=== PATIENT | male | born 1960 | race Caucasian/White ===

== ENCOUNTER 2016-10-10 02:38 | Emergency (ER) | payer OTHER ==
[~2016-10-10] VITALS: Ht 182.9 cm; Wt 95.5 kg
[2016-10-10 02:35] VITALS: BP 144/79; PULSE 76; RESP 20; O2SAT 94
--- NOTE | 2016-10-10 02:43 | ED.REPORT ---
HPI-Back Pain 40 and Over Date of Service Oct 10, 2016 ED Provider: Fidel Baron MD Patient is a 56 y/o male with a history of chronic back pain that presents to the ED via EMS with lower back pain. The pain began after the patient missed a step into his motor home [place] 2130, hyperextending his left knee and injuring his back. He did not fall and experienced no head trauma. The pain in his back radiates into his legs with associated numbness of the inner thighs and feet. The patient experiences these symptoms fairly frequently when he throws out his back. He has been unable to walk since this event but denies bowel or bladder incontinence. The patient had consumed a 6-pack of beer while celebrating his friends birthday prior to his fall, but state that he averages 1-2 beers a week. His back issues began after an injury in 2001 but he no longer uses any medication to treat the pain. Nursing Notes Stated Complaint: BACK PAIN Chief Complaint: Back Pain or Injury Nursing Notes Reviewed: Yes Allergies: Coded Allergies: Penicillins (Verified Allergy, Unknown, 10/10/16) Uncoded Allergies: PCN CAUSES SWELLING (Allergy, Unknown, 07/21/04) Penicillin (Allergy, Unknown, 07/21/04) No Active Prescriptions or Reported Meds General Time Seen by MD: 02:39 Chief Complaint Back pain Hx Obtained From: Patient, EMS Arrived By: Ambulance Sudden in Onset?: Yes Onset Occurred: 5 - 8 hours ago Symptom Duration: Since onset Quality: Painful Severity: Current: Severe Severity: Maximum: Severe Associated with: Reports: Numbness both low ext, Numbness left low ext Recent Healthcare: Recent doctor visit Similar Sx Previous: No Past Medical History Past Medical History Chronic back pain. Depression. Past Surgical History No history provided. Smoking History Current Every Day Smoker Social History Alcohol Use: 3-5 per day Other Social History: Local resident Ambulatory Status Independent Review of Systems Review of Systems Note: denies bowel or bladder incontinence Respiratory: Denies: Non-productive cough, Shortness of breath Cardiovascular: Denies: Chest pain GI: Denies: Abdominal pain, Vomiting Musculoskeletal: Reports: Back pain, Extremity pain, Denies: Neck pain Neurologic: Reports: Numbness Complete sys rev & neg: except as marked. Physical Exam Initial Vital Signs Vital Signs (First) Date Time Temp Pulse Resp B/P Pulse Ox O2 Delivery O2 Flow Rate FiO2 4/15/17 02:35 36.8 76 20 144/79 94 Room Air Initial VS: Reviewed, Vital signs normal Head / Eyes: Atraumatic, Normocephalic, PERRL ENT: Mucous membranes moist Skin: Warm, Dry, No cyanosis Psychiatric: Mood/affect normal, Behavior normal, Normal thought content General/Constitutional: Awake, Alert, Well developed, Well nourished Respiratory / Chest: Atraumatic, Breath sounds NL, Breath sounds = bilat, No respiratory distress Cardiovascular: Heart rate NL, Regular rhythm, Heart sounds NL Dorsalis pedis pulse and cap refill normal Abdomen: Atraumatic, Soft, Non-tender Back: Atraumatic Extreme low back pain and tenderness in bilateral parasacral region. Neurologic: Oriented X3, Speech NL, No motor deficits Subjective decreased sensation in LLE. Lower Extremity / Pelvis / MS: Atraumatic 4/5 strength of plantarflexion and dorsiflexion of the left leg. Patient is too uncomfortable to perform straight leg raise. Interpretation & Diagnostics Interpretation & Diagnostics: Lumbar spine X-Ray: Possible compression of L5, acuity uncertain Wet read ED physician Lab Results Interpretation Test 10/10/16 02:30 10/10/16 02:45 Hold Purple Top Tube Received (Received) Hold Blue Top Tube Received (Received) Hold Red Top Tube Received (Received) Hold [place] Top Tube Received (Received) Hold Urine Received (Received) Re-Eval/Medical Decision Med Decision/Clinical Course If D6-year-old with severe sacral pain after a misstep. He has chronic lumbar disc disease. He states this is more severe than it has ever been. He also has some weakness in his toe. He was medicated and his care will be turned over change shift to Dr. Lowery. He will get an MRI to further qualify this Source of Hx: Old records Re-Evaluation/Progress : Time of Eval: 05:40 Re-Evaluation/Progress Note: Discussed need for MRI and the plan for further treatment. Patient understands and agrees with the plan. Counseled Regarding: Diagnosis, Lab results Discharge & Departure Shift Change Sign-Out Patient Care Transferred: Yes Discussed Complaint(s): Yes Laboratory Evaluation: Lab evaluation discussed Imaging Studies: Imaging discussed Discharge Condition All VS Reviewed: Yes Condition: Stable Referrals: Twan Fox MD (PCP) Care Transferred to: Dr. Lowery Care Transferred at: 06:00 Scribe Attestation Portions of this note were transcribed by Ravinder Chicas and Bhargav Freire. I, Dr. Baron personally performed the history, physical exam and medical decision-making; I reviewed and confirmed the accuracy of the information in the transcribed note. Signed by: Ravinder Chicas and Bhargav Freire, Vilma, 10/10 and 0611. copies to: Twan Fox MD, Howard L MD Oct 10, 2016 02:43 Ravinder Chicas Oct 10, 2016 04:43 BHARGAV FREIRE Oct 10, 2016 06:07
[2016-10-10] MEDS ORDERED: Ketorolac 15 mg/mL Inj IVPUSH ONE (03:10)
[2016-10-10] MEDS ORDERED: Ondansetron 2 mg/mL 2 mL Inj IVPUSH PRN (04:00)
[2016-10-10] MEDS: HYDROmorphone 0.5 mg/0.5 mL iSecure Syringe IVPUSH PRN ×3 (04:19→10:20)
[2016-10-10 06:23] VITALS: BP 104/53; PULSE 65; RESP 14; O2SAT 99
--- NOTE | 2016-10-10 07:20 | DRSVH ---
PROCEDURE: X-RAY LUMBAR SPINE, 2 OR 3 VIEW INDICATIONS: low back pain TECHNIQUE: 3 views of the lumbar spine were acquired. COMPARISON: None. FINDINGS: Bones: 5 [id number] vertebrae are present. There is normal bony alignment. There is mild anteri or wedging at L5 unchanged from the MRI dated 08/04/12. No suspicious bony lesions. Soft tissues: Overlying bowel gas pattern is normal. No suspicious soft tissue calcifications. IMPRESSION: Mild anterior wedging at L5 which has a chronic appearance. No acute radiographic findings. Dictated by: Nory Galeas M.D. on 10/10/2016 at 7:17 Approved by: Nory Galeas M.D. on 10/10/2016 at 7:18
[2016-10-10 11:00] VITALS: BP 130/69; PULSE 58; RESP 20; O2SAT 96
--- NOTE | 2016-10-10 11:41 | DRSVH ---
PROCEDURE: MRI LUMBAR SPINE WITHOUT CONTRAST ([id number]) INDICATIONS: Lower extremity weakness after fall today TECHNIQUE: Noncontrast sagittal T1 spin echo and T2 fast echo, sagittal STIR, axial T1 and T2 fast spin echo thr ough the lumbar spine. In cases with scoliosis, additional coronal T2 fast spin echo may be performe d. COMPARISON: None. FINDINGS: Image quality: Excellent. Alignment and Curvature: There is normal bony alignment. Bone Marrow: Marrow is of normal overall signal. No acute vertebral body compression fractures. Spinal Cord: Conus medullaris terminates at the T12 level. Visualized cord demonstrates normal sign al and size. Paraspinous Soft Tissues: No paravertebral masses. L1-L2: Mild disc bulge. Mild canal stenosis. No foraminal narrowing. L2-L3: Mild disc bulge. Mild facet and ligamentum flavum hypertrophy. Mild canal stenosis. No canal s tenosis. L3-L4: Mild disc bulge. Mild facet and ligamentum flavum hypertrophy. No canal stenosis. Mild bilater al foraminal stenosis. L4-L5: Reactive endplate changes. Broad-based disc bulge. Mild disc desiccation. Moderate facet and l igamentum flavum hypertrophy. Moderate canal stenosis. Moderate bilateral foraminal stenosis. L5-S1: Moderate disc desiccation and height loss. Broad-based disc bulge. Left lateral disc bulge whi ch abuts and posteriorly displaces the exiting left nerve root. This is markedly decreased in severit y when compared with the study dated 08/04/12 where there was likely a large disc protrusion present. No canal stenosis. Severe left foraminal narrowing with flattening of the nerve root. Moderate right foraminal narrowing. IMPRESSION: 1. No acute wedge compression deformities. 2. Disc desiccation and height loss of the lumbar spine most severe at L4-5 and L5-S1. 3. Broad-based left lateral disc bulge at L5-S1 markedly decreased in extent when compared with the s tudy dated 08/04/12. However, the exiting left nerve root is slightly posteriorly displaced. It is unc lear whether this is concordant with the patient's symptoms. 4. Severe left foraminal narrowing at L5-S1, moderate right foraminal narrowing at L5-S1 and moderate bilateral foraminal narrowing at L4-5. Dictated by: Nory Galeas M.D. on 10/10/2016 at 11:34 Approved by: Nory Galeas M.D. on 10/10/2016 at 11:40
[2016-10-10] MEDS ORDERED: OXYC1TAB24 PO (12:01)
[2016-10-10 12:18] VITALS: BP 130/69; PULSE 58; RESP 20; O2SAT 96
== END 2016-10-10 12:45 | disposition home or self-care (01) ==
LOC: SED 02:38
DX: S39.012A Strain of muscle, fascia and tendon of lower back, initial encounter (principal); M54.17 Radiculopathy, lumbosacral region; X50.9XXA Other and unspecified overexertion or strenuous movements or postures, initial encounter; Y93.89 Activity, other specified; Y92.029 Unspecified place in mobile home as the place of occurrence of the external cause; Y99.8 Other external cause status; F17.200 Nicotine dependence, unspecified, uncomplicated; Z88.0 Allergy status to penicillin
CPT/HCPCS: 72100; 72148; 82075; 96374; 96375; 96376; 99285; J1170; J1885; J2405